=== PATIENT | female | born 1935 | race Caucasian/White ===

== ENCOUNTER 2017-12-25 13:10 | Inpatient (IN) | payer MEDICARE, OTHER ==
[2017-12-25] MEDS ORDERED: Lorazepam 2 MG/ML VIAL ONE (14:35)
[2017-12-25] MEDS ORDERED: Acetaminophen 325 MG TAB PO PRN ×2 (20:57→21:27)
[2017-12-25] MEDS ORDERED: Ondansetron ODT 4 MG TAB SL PRN (20:57)
[2017-12-25] MEDS ORDERED: Ondansetron HCl/PF 4 MG/2 ML Vial IVP PRN (20:57)
[2017-12-25] MEDS ORDERED: Famotidine 20 MG TAB PO SCH (21:00)
[2017-12-25] MEDS ORDERED: hydrALAZINE 20 MG/ML VIAL SLOW IVP PRN (21:27)
[2017-12-25] MEDS ORDERED: Milk Of Magnesia 30 ML UDCUP PO PRN (21:27)
[2017-12-25] MEDS ORDERED: Ondansetron ODT 4 MG TAB PO PRN (21:27)
[2017-12-25] MEDS: Atorvastatin Calcium 20 MG TAB PO SCH (22:53)
[2017-12-25] MEDS: Sodium Chloride 0.9% 1,000 ML IV SCH (22:54)
[2017-12-25] MEDS: Docusate 100 MG CAP PO SCH (22:54)
--- NOTE | 2017-12-26 00:18 | HP ---
PRIMARY CARE PHYSICIAN: The patient currently does not have a primary care physician. CHIEF COMPLAINT: Left-sided weakness. HISTORY OF PRESENT ILLNESS: Ms. Decker is a pleasant 82-year-old female that has a history of prev ious cerebrovascular accident x2 as well as hypertension. She is currently not on any medications; h owever. She lives independently and her daughter lives nearby. She says that on Monday afternoon, s he had a very painful shock like sensation to both of her legs. She said it was similar to when she had a previous stroke, but it was less than before. She says she was not very worried about it becau se in the times that she had had a stroke in the past, it got better and left her without any residua l deficits. She says this time though she started noticing some weakness in her left hand and her le ft leg. However, it started to get progressively weaker. She was able to manage getting around with a walker, but it got progressively worse and then on this morning, she was unable to even get up and unable to ambulate and she has fallen 3 times, 2 times over the weekend and one earlier and this pablo son she came to the emergency room for evaluation. The patient denies any other symptoms such as yovany st pain or difficulty breathing. No fevers or chills, etc. REVIEW OF SYSTEMS: Constitutional: Again, no fevers, chills, no night sweats, no weight loss. HEEN T: She denies any headaches, no dizziness, no visual changes, no sore throat, rhinorrhea, neck pain, no adenopathy. Pulmonary: No hemoptysis, no cough, no wheezing. Cardiovascular: She denies any c hest pain, no shortness of breath, no PND, no orthopnea. Gastrointestinal: No abdominal pain, no na usea, no vomiting, no change in bowels. Genitourinary: No urinary frequency, hematuria, no hesitanc y. Neurologic: As in the history of present illness. Skin/integument: No skin changes. No rash. PAST MEDICAL HISTORY: She has had a cerebrovascular accident x2, hypertension. She said she was haile d years ago, she had atrial fibrillation, but she is not on any medications and also told she had con gestive heart failure. No medications. PAST SURGICAL HISTORY: She has had an appendectomy. ALLERGIES: No known drug allergies. SOCIAL HISTORY: She is . She is a nonsmoker, nondrinker. She has 1 child and her daughter, Mi Nguyen is at the bedside. She is also her medical power of employment attorney. Her code status is DNR. FAMILY HISTORY: No history of any inheritable diseases. CURRENT MEDICATIONS: None. PHYSICAL EXAMINATION: GENERAL: She is alert and oriented. She appears to be in no acute distress. VITAL SIGNS: Blood pressure is ranging from about 197/100 to even 200 systolic. Her heart rate is i n the 70s, respiratory rate of 18 and she is afebrile. HEENT: Pupils are equal, round, and reactive. Extraocular muscles are intact. Her sclerae are anic teric. Throat, no erythema, no exudates. NECK: There is no adenopathy or bruits. LUNGS: Clear to auscultation. There was no wheezing or rales. CARDIOVASCULAR: She had a normal S1, S2. I did not appreciate an S3 or S4. She did have a grade 2/ 6 systolic murmur. ABDOMEN: Obese, it is soft, it is nontender, nondistended. Positive for bowel sounds. There is no rebound or guarding. EXTREMITIES: No clubbing, cyanosis, no edema. NEUROLOGIC: She has a left facial droop and she has weakness in the left upper and lower extremity. Her reflexes were slightly hyperreflexive with them being approximately 3+ in the brachioradialis an d patellar on the left side. EXTREMITIES: There was no Babinski on her extremities, there is no skin lesions and her pulses are p alpable the dorsalis pedis and posterior tibial. LABORATORY DATA: Lab results are taken from the [facility] and her sodium was 142, potassi um 3.3, chloride was 104, CO2 is 26, BUN of 16, creatinine 0.6, glucose is 116. White blood cell cou nt is 8.2, hemoglobin 14.2, hematocrit is 39.6, platelet count was 265. UA was essentially negative. Liver tests were negative. Troponin was less than 0.040, and a CT scan showed a right pontine infa rct. EKG was sinus rhythm. The rate was 72. She had some voltage criteria for LVH. ASSESSMENT AND PLAN: This is a pleasant 82-year-old female that presents with an acute right pontine infarct, which has left her with left-sided weakness and she has been unable to manage herself at [facility]. She has a history of atrial fibrillation in the past, where she is currently not on any medicati ons. It is unclear whether or not this may have precipitated the stroke. Her EKG in the ER was sinu s rhythm. She will be admitted to the stroke unit. Since the stroke is already documented, we will not obtain an MRI on this occasion; however, we will get an echocardiogram given the heart murmur and bilateral carotid Dopplers. Monitor her for atrial fibrillation while she is here. If none is seen , then she may need to see a resource room teacher with regards to possibly placing an event monitor. Hypertension. Her blood pressure is very poorly controlled. This may be as a result of the acute in [facility]; however, she does give a history of hypertension and she is currently not on medications. We will allow permissive hypertension at this point. However, in the next few days, we will monitor and determine whether or not she needs some long-term antihypertensive medication. She will need aggres sive PT and OT and suspect she will likely need a stay in inpatient rehabilitation.
[2017-12-26 00:20] VITALS: BMI 17.7
[2017-12-26 05:51] LABS: #Basophils 0.1 thou/uL (0.0-0.2); #Eosinphils 0.3 thou/uL (0.0-0.7); #Lymphocytes 1.5 thou/uL (1.20-3.40); #Monocytes 0.9 thou/uL (0.11-0.59); #Neutrophils 5.9 thou/uL (1.40-6.50); %Basophils 0.7 % (0.0-1.0); %Lymphocytes 17.8 % (21.0-51.0); %Monocytes 10.1 % (0.0-10.0); %Neutrophils 68.4 % (42.0-75.0); Hemoglobin 14.4 g/dL (12.0-16.0); Mean Corpuscular HGB CONC 34.3 g/dL (32.0-36.0); Mean Corpuscular Hemoglobin 32.6 pg (27.0-31.0); Mean Corpuscular Volume 94.9 fl (81.0-99.0); Mean Platelet Volume 7.6 fL (7.4-10.4); Platelet Count 244 thou/uL (130-400); RBC Distribution Width 11.9 % (11.5-14.5); Red Blood Cell (RBC) Count 4.42 mill/uL (4.20-5.40); White Blood Cell (WBC) Count 8.7 thou/uL (4.8-10.8)
[2017-12-26 06:00] LABS: Anion Gap 12 mmol/L (10-20); BUN (Urea Nitrogen) 15 mg/dL (9.8-20.1); Calc. Creatinine Clearance 48 mL/min (70-130); Calcium 8.7 mg/dL (7.8-10.44); Carbon Dioxide 23 mmol/L (23-31); Chloride 104 mmol/L (98-107); Cholesterol 158 mg/dl (< 200 Desired); Estimated GFR-MDRD Greater than 90; Glucose 95 mg/dL (83-110); HDL Cholesterol 52 mg/dL (>60 Neg Risk); LDL Cholesterol, Calculated 92 mg/dL; Potassium 3.3 mmol/L (3.5-5.1); Sodium 136 mmol/L (136-145); Triglycerides 71 mg/dL (Less than 150)
--- NOTE | 2017-12-26 09:21 | ULT ---
ULTRASOUND CAROTID DOPPLER STANDARD: HISTORY: Acute CVA. COMPARISON: None. TECHNIQUE: Real-time, burr scale, color Doppler, and spectral analysis of the extracranial carotid and vertebral arteries was performed. FINDINGS: There is normal antegrade flow within both vertebral arteries. No elevated peak systolic velocities within the internal carotid arteries. Mild intimal wall thickening. Right ICA/CCA ratio is 0.82 and left ICA/CCA ratio is 0.86. IMPRESSION: No evidence of hemodynamically significant stenosis. POS: TPC
[2017-12-26] MEDS: Docusate 100 MG CAP PO SCH ×2 (10:38→20:35)
[2017-12-26] MEDS: Aspirin 325 mg Enteric Coated Tablet PO SCH (10:38)
[2017-12-26] MEDS: Enoxaparin Sodium 40 MG/0.4 ML SYRINGE SC SCH (10:38)
--- NOTE | 2017-12-26 14:13 | PQF ---
Date: 12-26-17 ATTN: DR. RICHI MARTINEZ Please exercise your independent, professional judgment in responding to the clarification form. Clinical indicators are provided on the bottom of this form for your review Please check appropriate box(s): [X ] Protein Calorie Malnutrition: [ X ] Mild [ ] Moderate [ ] Severe [ ] Cachexia [ ] Other diagnosis [ ] Unable to determine In addition, please specify: Present on Admission (POA): [X ] Yes [ ] No [ ] Unable to determine CLINICAL INDICATORS - SIGNS / SYMPTOMS / LABS BMI of 17.7 OT ASSESSMENT 12-26-17: MUSCLE WEAKNESS, NEUROLOGICAL DEFICITS, DECLINED IN ADLS AND FX MOBILITY NURSE NOTE 12-25-17: PT ARRIVED VIA STRETCHER, MOVED TO ROOM BED WITH 3 NURSE ASSIST RISK FACTORS: H&P: CVA X2, HTN, AFIB, CHF TREATMENT: DIETARY CONSULT: 12-26-17: 1. Continue heart healthy diet type, textures per MARINE SERVICE MANAGER. 2. Recommend Ensure Enlive once daily. Moderate Malnutrition (in acute illness) Energy Intake: <75% of estimated energy requirement for > 7 days Weight Loss: 1-2%/1 week; 5%/ 1 month; 7.5%/3 months Other: mild body fat loss; mild muscle mass loss; mild fluid accumulation; Severe Malnutrition (in acute illness) Energy Intake: < 50% of estimated energy requirement for > 5 days Weight Loss: >1-2%/1 week; >5%/1 month; >7.5%/3 months Other: moderate body fat loss; moderate muscle mass loss; moderate- severe fluid accumulation; measurably reduced loan associate strength Moderate Malnutrition (in chronic illness) Energy Intake: <75% of estimated energy requirement for >1 month Weight Loss: 5%/1 month; 7.5%/3 months; 10%/6 months; 20%/1 year Other: mild body fat loss; mild muscle mass loss; mild fluid accumulation Severe Malnutrition (in chronic illness) Energy Intake: <75% of estimated energy requirement for >1 month Weight Loss: >5%/1 month; >7.5%/3 months; >10%/6 months; >20%/1 year Other: severe body fat loss; severe muscle mass loss; severe fluid accumulation ; measurably reduced loan associate strength (This form is maintained as a part of the permanent medical record) 2014 [employer] All Rights Reserved [email or web address] Office: [phone] [facility]
[2017-12-26] MEDS ORDERED: Potassium Chloride 20 MEQ TAB PO SCH (14:15)
--- NOTE | 2017-12-26 14:32 | PDOC.PN ---
- Subjective Encounter Start Date: 12/26/17 Encounter Start Time: 14:30 Ms. Decker was seen today in follow-up. She does not have any new complaints. She feels the weakness is about the same. - Objective Resuscitation Status: Resuscitation Status DNR:Do Not Resuscitate MAR Reviewed: Yes Vital Signs & Weight: Vital Signs (12 hours) Temp Pulse Pulse Pulse Resp BP BP 12/26/17 11:15 98 F 77 18 12/26/17 08:52 86 85 191/94 H 194/98 H 12/26/17 08:00 97.8 F 71 16 12/26/17 07:30 97.8 F 71 16 12/26/17 02:54 98.4 F 73 16 BP Pulse Ox 12/26/17 11:15 161/91 H 95 12/26/17 08:52 12/26/17 08:00 94 L 12/26/17 07:30 198/96 H 94 L 12/26/17 02:54 217/107 H 95 Weight Admit Weight 91 lb Weight 91 lb I&O: 12/25/17 12/26/17 12/27/17 06:59 06:59 06:59 Intake Total 720 Balance 720 Result Diagrams: 12/26/17 05:31 12/26/17 05:31 Phys Exam - Physical Examination HEENT: PERRLA, oral pharynx no lesions + left facial droop has improved Respiratory: no wheezing, no rales, no rhonchi, clear to auscultation bilateral Cardiovascular: RRR, no significant murmur, no rub Gastrointestinal: soft, non-tender, no distention Musculoskeletal: no edema, pulses present, edema present Neurological: non-focal Dx/Plan (1) Acute CVA (cerebrovascular accident) Code(s): I63.9 - CEREBRAL INFARCTION, UNSPECIFIED Status: Acute (2) Hypertension Code(s): I10 - ESSENTIAL (PRIMARY) HYPERTENSION Status: Acute (3) Dyslipidemia Code(s): E78.5 - HYPERLIPIDEMIA, UNSPECIFIED Status: Acute - Plan * Acute Right Pontine CVA -The left facial droop has improved. The strength in her left hand also seems slightly better than yesterday * HTN- will start a low dose of lisinopril tomorrow * Dyslipidemia- continue Lipitor * AFIB- she has not had evidence of this while she has been in the hospital- will consult Cardiology to see if she should be placed on an anticoagulant, or if she she have an event monitor placed at discharge * Continue PT/OT * Echo results pending * Carotid doppler was negative for flow limiting disease.
[2017-12-26] MEDS: Sodium Chloride 0.9% 1,000 ML IV SCH (15:04)
--- NOTE | 2017-12-26 20:02 | CON ---
DATE OF CONSULTATION: 12/26/2017 NEUROLOGY CONSULTATION CONSULTING PHYSICIAN: Hospitalist Service. IMPRESSION: Lacunar stroke resulting in a left hemiparesis. PLAN: 1. Aspirin 81 mg per day. 2. Low-dose statin. 3. Carotid ultrasound. 4. Echocardiogram. 5. PT and OT evaluations. 6. Probable rehabilitation transfer. HISTORY OF PRESENT ILLNESS: Ms. Decker is an 82-year-old woman who developed some left-sided weakn ess about a week ago. She did seek medical attention right away. The symptoms have been fairly stab le throughout the week by her assessment. She does not have any problems speaking or swallowing. Nadine villalpando has never had anything like this in the past and she denies any risk factors for stroke. Her initi al CT scan of the brain was unremarkable other than a questionable left pontine infarct. Lab work wa s all in normal range. PAST MEDICAL HISTORY: Negative. ALLERGIES: None reported. SOCIAL HISTORY: No tobacco or alcohol use. She lives alone in an independent manner. FAMILY HISTORY: Unremarkable. REVIEW OF SYSTEMS: No complaint of headache, nausea, vomiting, vertigo, double vision, alteration of consciousness, numbness of the extremities. PHYSICAL EXAMINATION: GENERAL: She is a thin elderly lady, lying in bed in no distress. VITAL SIGNS: Pulse 80, respirations 20. HEENT: Pupils are equal and reactive. Conjunctivae clear. Oropharynx clear. NECK: Supple. No lymphadenopathy noted. EXTREMITIES: No cyanosis. There is some orthopedic deformity secondary to arthritis. NEUROLOGIC: She is alert and appropriate. Her speech is fluent and clear. Cranial nerve exam shows a subtle left flattening of the nasolabial fold. She has antigravity strength on the left, but it i s in the range of 4-/5. Sensation is intact. Rapid alternating movements are decreased on the left. Gait was not tested. She reportedly is only able to walk 1 or 2 steps with a walker earlier today. No tremor or dysmetria was present. IMAGING: EKG shows normal sinus rhythm. SUMMARY: This is an elderly lady with a small vessel stroke resulting in left-sided weakness. Agree with your medical management and workup plan.
[2017-12-26] MEDS: Amlodipine 5 MG TAB PO SCH (20:35)
[2017-12-26] MEDS: Famotidine 20 MG TAB PO SCH (20:35)
[2017-12-26] MEDS: Atorvastatin Calcium 20 MG TAB PO SCH (20:35)
[2017-12-26] MEDS ORDERED: NIFEdipine XL 30 MG TAB PO SCH (21:00)
--- NOTE | 2017-12-26 23:58 | CON ---
DATE OF CONSULT: The patient is an 82-year-old woman who presents with left-sided weakness. The patient states she pr eviously has a history of atrial fibrillation and congestive heart failure. She presented to the [facility] with acute onset of left-sided weakness. She states she previously had suffered either a TIA o r cerebrovascular accident. The patient denies any history of chest discomfort or palpitations. PAST MEDICAL HISTORY: Significant for 1. Congestive heart failure. 2. Hypertension. 3. Cerebrovascular accident. 4. Possible atrial fibrillation. PAST SURGICAL HISTORY: Appendectomy. SOCIAL HISTORY: Nonsmoker. FAMILY HISTORY: No strong family history of coronary artery disease. ALLERGIES: None. MEDICATIONS: None. REVIEW OF SYSTEMS: Ten-point system otherwise unremarkable. No history of easy bruising, bleeding, bright red blood per rectum. PHYSICAL EXAMINATION: GENERAL: This is a thin, underweight woman in no acute distress. VITAL SIGNS: Blood pressure 205/107. NECK: Showed no jugular venous distention. LUNGS: Clear to auscultation. HEART: Regular rate and rhythm with a normal S1, S2, no murmurs. ABDOMEN: Nondistended. EXTREMITIES: Showed no edema. SKIN: Warm and dry. NEUROLOGIC: She has left-sided weakness, left arm and left leg have diminished air have diminished s trength. LABORATORY: Sodium 136, creatinine 3.3, chloride 104, Bicarb 23, BUN 15, creatinine 0.59, glucose 95 . White blood count 8.7, hemoglobin 14.4, hematocrit 42.0, platelets are 244. EKG I revealed normal sinus rhythm with left ventricular hypertrophy. IMPRESSION: 1. Cerebrovascular accident. 2. History of congestive heart failure. 3. Poorly controlled hypertension. 4. Possible atrial fibrillation. This patient presents with a cerebrovascular accident. This is apparently pontine infarct. From a c ardiac standpoint, we will proceed with a ELIEZER to make sure there is no evidence of thrombus or shunts . We will add Norvasc to her medical regimen to lower her blood pressure. We will await Neurology e valuation. She may benefit from placement of a Reveal monitor to determine whether she has atrial fi brillation if placed on chronic anticoagulation. We will follow this patient with you through her ho spitalization.
--- NOTE | 2017-12-27 08:29 | PDOC.PN ---
- Subjective Encounter Start Date: 12/27/17 Encounter Start Time: 08:28 Subjective: still very weak on left side - Objective Resuscitation Status: Resuscitation Status DNR:Do Not Resuscitate MAR Reviewed: Yes Vital Signs & Weight: Vital Signs (12 hours) Temp Pulse Resp BP BP BP Pulse Ox 12/27/17 07:32 97.9 F 76 16 192/95 H 93 L 12/27/17 04:35 98.9 F 95 16 174/92 H 12/26/17 23:49 97.9 F 81 16 200/95 H 97 12/26/17 20:35 60 196/99 H 12/26/17 20:30 98.3 F 60 22 H 95 Weight Admit Weight 91 lb Weight 91 lb I&O: 12/26/17 12/27/17 12/28/17 06:59 06:59 06:59 Intake Total 720 1940 Balance 720 1940 Result Diagrams: 12/26/17 05:31 12/26/17 05:31 Phys Exam - Physical Examination Neck: no JVD Respiratory: clear to auscultation bilateral Cardiovascular: RRR, no significant murmur Gastrointestinal: soft, non-tender Musculoskeletal: no edema dense left spastic hemiplegia Dx/Plan (1) Hemiplegia affecting left nondominant side Code(s): G81.94 - HEMIPLEGIA, UNSPECIFIED AFFECTING LEFT NONDOMINANT SIDE Status: Acute Qualifiers: Hemiplegia type: spastic Hemiplegia etiology: late effect of cerebrovascular disease (2) Atrial fibrillation, currently in sinus rhythm Code(s): Z86.79 - PERSONAL HISTORY OF OTHER DISEASES OF THE CIRCULATORY SYSTEM Status: Chronic (3) Acute CVA (cerebrovascular accident) Code(s): I63.9 - CEREBRAL INFARCTION, UNSPECIFIED Status: Acute (4) Dyslipidemia Code(s): E78.5 - HYPERLIPIDEMIA, UNSPECIFIED Status: Chronic (5) Hypertension Code(s): I10 - ESSENTIAL (PRIMARY) HYPERTENSION Status: Chronic Qualifiers: Hypertension type: essential hypertension Qualified Code(s): I10 - Essential (primary) hypertension - Plan cont PT/OT- rehab screen -: cont norvasc, add b-maricarmen if needed -: cont asa, statin * .
[2017-12-27] MEDS: Enoxaparin Sodium 40 MG/0.4 ML SYRINGE SC SCH (08:33)
[2017-12-27] MEDS: Amlodipine 5 MG TAB PO SCH (08:34)
[2017-12-27] MEDS: Aspirin 325 mg Enteric Coated Tablet PO SCH (08:34)
[2017-12-27] MEDS: Docusate 100 MG CAP PO SCH ×2 (08:35→20:47)
[2017-12-27] MEDS ORDERED: Prevnar 13-Val Conj/PF 0.5 ML SYRINGE IM ONE (09:00)
[2017-12-27] MEDS ORDERED: Lisinopril 5 MG TAB PO SCH (09:00)
[2017-12-27] MEDS: NIFEdipine XL 30 MG TAB PO SCH ×2 (09:58→20:48)
[2017-12-27] MEDS: Sodium Chloride 0.9% 1,000 ML IV SCH (14:09)
--- NOTE | 2017-12-27 18:52 | DIS ---
DATE OF ADMISSION: 12/25/2017 DATE OF DISCHARGE: 12/27/2017 DISCHARGE DISPOSITION: Discharged to inpatient rehabilitation. FINAL DIAGNOSES: Pontine infarct, left spastic hemiplegia, hypertension, history of atrial fibrillat ion in regular sinus rhythm. DISCHARGE MEDICATIONS: Zofran oral dissolving tablet 4 mg q.6 hours p.r.n., nifedipine 30 mg p.o. b. i.d., Pepcid 20 mg p.o. daily, Colace 100 mg p.o. b.i.d., Lipitor 20 mg at bedtime, aspirin 325 mg a day. ALLERGIES: PENICILLINS. CODE STATUS: DNR. PENDING AT TIME OF DISCHARGE: Nothing. HOSPITAL COURSE: Patient was admitted with the acute onset of left-sided hemiplegia with spasticity. She was started on PT, OT, aspirin. Her carotid Doppler was unrevealing. She was seen in consulta tion by Dr. Shan Reyes who agreed with the current plan aspirin, statins, PT, OT. Her swallowing w as good. She was seen by Dr. Valerio, Cardiology because of her history of atrial fibrillation. Sh e declined ELIEZER, etc. No MRI was done. Patient declined. Her CT done in [place] revealed a 1 x 2 cm right pontine infarct, no MRI was done at patient's request. Currently, her vital signs are stabl e. She is with normal cardiorespiratory exam, regular sinus rhythm. Her CBC was normal. Comp metab olic profile was unremarkable. She is being transferred to rehab for ongoing physical therapy. She will need a PCP post-discharge. No procedures were done.
[2017-12-27 19:20] VITALS: BP 134/63
[2017-12-27] MEDS: Famotidine 20 MG TAB PO SCH (20:48)
[2017-12-27] MEDS: Atorvastatin Calcium 20 MG TAB PO SCH (20:48)
[2017-12-27 23:08] VITALS: TEMP 98
== END 2017-12-27 21:22 | DRG 65 ==
LOC: ERS 13:10 → 2SE 15:48
PROVIDERS: ADMIT Internal Medicine; ATTEND Internal Medicine
DX: I63.9 Cerebral infarction, unspecified (principal); G81.94 Hemiplegia, unspecified affecting left nondominant side; E44.1 Mild protein-calorie malnutrition; Z68.1 Body mass index [BMI] 19.9 or less, adult; I10 Essential (primary) hypertension; I50.9 Heart failure, unspecified; Z66 Do not resuscitate; Z88.0 Allergy status to penicillin; E78.5 Hyperlipidemia, unspecified
CPT/HCPCS: 36415; 80048; 80061; 85025; 93880; 96374; A4216; G8987-GO-CL; G8988-GO-CJ; G8996-GN-CH; G8997-GN-CH; J1650; J2060

== ENCOUNTER 2020-08-04 10:58 | Inpatient (IN) | payer MEDICARE, OTHER ==
[2020-08-04 12:03] LABS: #Eosinphils 0.1 thou/uL (0.0-0.7); #Lymphocytes 1.3 thou/uL (1.20-3.40); #Monocytes 0.7 thou/uL (0.11-0.59); %Basophils 0.6 % (0.0-1.0); %Eosinophils 0.8 % (0.0-10.0); %Lymphocytes 16.3 % (21.0-51.0); %Monocytes 8.6 % (0.0-10.0); %Neutrophils 73.8 % (42.0-75.0); Hemoglobin 9.1 g/dL (12.0-16.0); Mean Corpuscular HGB CONC 32.4 g/dL (32.0-36.0); Mean Corpuscular Hemoglobin 30.8 pg (27.0-31.0); Mean Corpuscular Volume 94.9 fL (78.0-98.0); Mean Platelet Volume 7.7 fL (7.4-10.4); Platelet Count 263 thou/uL (130-400); RBC Distribution Width 14.2 % (11.5-14.5); Red Blood Cell (RBC) Count 2.97 mill/uL (4.20-5.40); White Blood Cell (WBC) Count 8.1 thou/uL (4.8-10.8)
[2020-08-04 12:34] LABS: ALT (SGPT) 10 U/L (8-55); AST (SGOT) 16 U/L (5-34); Albumin 3.6 g/dL (3.4-4.8); Alkaline Phosphatase 69 U/L (40-110); Anion Gap 15 mmol/L (10-20); BUN (Urea Nitrogen) 38 mg/dL (9.8-20.1); Bilirubin, Total 0.4 mg/dL (0.2-1.2); Calc. Creatinine Clearance 0 mL/min (70-130); Calcium 8.7 mg/dL (7.8-10.44); Carbon Dioxide 19 mmol/L (23-31); Chloride 109 mmol/L (98-107); Globulin 2.9 g/dL (2.4-3.5); Glucose 98 mg/dL (83-110); Potassium 4.8 mmol/L (3.5-5.1); Protein, Total 6.5 g/dL (6.0-8.3); Sodium 138 mmol/L (136-145)
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
[2020-08-04] MEDS ORDERED: Ondansetron ODT 4 MG TAB PO PRN (16:22)
[2020-08-04] MEDS ORDERED: Ondansetron PF 4 MG/2 ML Vial IVP PRN (16:22)
[2020-08-04 18:01] LABS: INR-International Normal Ratio 1.1; Prothrombin Time 14.1 sec (12.0-14.7)
[2020-08-04 18:02] LABS: PTT 29.2 sec (22.9-36.1)
[2020-08-04] MEDS: Famotidine/PF 20 mg/2ml Vial SLOW IVP SCH (20:06)
[2020-08-05 01:29] LABS: Hemoglobin 7.6 g/dL (12.0-16.0); Platelet Count 234 thou/uL (130-400)
[2020-08-05 05:33] LABS: Hemoglobin 8.3 g/dL (12.0-16.0)
--- NOTE | 2020-08-05 06:08 | PDOC.FM ---
- Subjective Subjective: Pt resting comfortably in bed this AM. No acute events overnight. States that she is feeling hungry and tired. Remained stable overnight. - Objective Vital Signs & Weight: Vital Signs (12 hours) Temp Pulse Resp BP Pulse Ox 08/05/20 03:11 98.4 F 66 15 110/64 98 08/04/20 23:54 98.2 F 66 15 106/59 L 96 08/04/20 19:20 98.2 F 66 15 104/65 96 08/04/20 18:20 98.6 F 66 18 142/65 H 99 Weight Weight 46.493 kg I&O: 08/03/20 08/04/20 08/05/20 06:59 06:59 06:59 Intake Total 350 Balance 350 Result Diagrams: 08/05/20 05:09 08/04/20 11:53 Phys Exam - Physical Examination Constitutional: NAD HEENT: moist MMs pale palpebra Neck: supple Respiratory: no wheezing, no rales, no rhonchi, clear to auscultation bilateral Cardiovascular: RRR, no significant murmur, no rub Gastrointestinal: soft, non-tender, no distention, positive bowel sounds Musculoskeletal: pulses present Neurological: moves all 4 limbs Psychiatric: normal affect, A&O x 3 Skin: normal turgor Dx/Plan - Plan Plan: ##Acute Blood Loss Anemia 2/2 to suspected UGB Pt has been having 3 months of black tarry stools. Pt had hx of use of daily use of aspirin with warfarin for 2.5 years after her stroke. She is not currently taking any NSAIDs at this time. She is hemodynamically stable at this time. -Pt's VSS currently, no current bleeding at this time -Pt's GI is Dr. Zaman, has been consulted at this time, suspect that pt will be taken to have EGD and Colonoscopy -PT/PTT ordered, if patient has bleeding and INR > 2.5 will consider FFP for patient -Type and Cross done -H/H stable at this time 8.3 Chronic Conditions: -Hx of CVA: aware -HTN: continue home meds -Afib: continue home meds -HLD: continue home meds DIET: Clears VTE: None CODE: DNRI MPOA: Daughter - María Elena Dispo as of 08/05: Admitted to medical service. GI consulted and will await recs and pending scopes. Will continue to monitor pt symptomatically and transfuse as necessary. H/H stable at this time.
[2020-08-05 06:39] LABS: Iron 24 ug/dL (50-170); Iron Binding Capacity, Total 324 mcg/dL (265-497)
[2020-08-05] MEDS: Famotidine/PF 20 mg/2ml Vial SLOW IVP SCH (08:05)
[2020-08-05] MEDS ORDERED: Lisinopril 10 MG TAB PO SCH (09:00)
[2020-08-05] MEDS: Ferrous Sulfate 325 MG TAB PO SCH (09:00)
[2020-08-05 10:03] LABS: SARS-CoV-2 MS2 Positive; SARS-CoV-2 N Gene Negative; SARS-CoV-2 S Gene Negative; SARS-CoV-2 by NAA Not Detected (NotDetected); SARS-CoV-2 orf1ab Negative
[2020-08-05] MEDS ORDERED: Pantoprazole 40 MG VIAL IVP SCH (10:15)
--- NOTE | 2020-08-05 13:32 | HP ---
HISTORY OF PRESENT ILLNESS: I have examined the patient, discussed the case with Dr. Lorene Parham. Ms. Decker is a very pleasant 84-year-old lady presents with a one month history of dark black stools interspersed at times of bright red blood. During this time, she has been seeing her physician and has required 6 units of packed red blood cells over the past month. She was becoming progressively weaker, continued to bleed, and was admitted for endoscopic studies to determine the source. PHYSICAL EXAMINATION: VITAL SIGNS: Her blood pressure is 137/80, her pulse rate is 65 and regular, respirations 17, O2 sats 99% on room air. GENERAL: She is a very pleasant, alert, elderly woman, in no acute distress. EAR, NOSE, AND THROAT: Appears slightly pale. Otherwise, no erythema or exudate of the throat. NECK: Supple. CARDIAC: Heart rhythm is regular. gallop. No murmurs or rubs noted. LUNGS: Clear without rales or wheezes. ABDOMEN: Slightly tender in the epigastric area, not marked. No guarding, rebound, or rigidity. No distention. EXTREMITIES: No edema. NEUROLOGIC: No focal deficits. LABORATORY DATA: CBC; white count was 8100, hemoglobin 9.1, hematocrit 28.2 with an MCV of 95. Coag studies were normal. Chemistries; sodium 138, potassium 4.8, chloride 109, bicarb 19, BUN 38, creatinine 0.85. Iron studies; serum iron low at 24, TIBC mid range high at 324, O2 saturation low at 7, and ferritin low at 27, all consistent with iron deficiency anemia. ASSESSMENT: 1. Evidence of upper and lower gastrointestinal bleeding. 2. Anemia secondary to evidence of upper and lower gastrointestinal bleeding. PLAN: Admit for endoscopic studies. We have already consulted GI. We will transfuse if her hemoglobin drops below 7. Her PT/INR is normal, though she needs no addition of FFP at this time. We also begin intravenous PPI and await the results of endoscopies. Now I would like to proceed with daily note on Ms. Decker. Ms. Decker this morning is awake, alert, in no distress. She is awaiting GI prep for her endoscopic studies to likely be done tomorrow. Her hemoglobin has remained basically stable, dropping to 7.6, but this morning was 8.3. We will continue to monitor closely, but no need for transfusion at this time. Job ID: [id number]
[2020-08-05] MEDS ORDERED: GoLYTELY 4,000 ml Bottle PO SCH ×2 (16:00→20:45)
[2020-08-05] MEDS: Pantoprazole 40 MG VIAL IVP SCH (19:28)
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
--- NOTE | 2020-08-06 05:31 | PDOC.FM ---
- Subjective Subjective: Pt resting comfortably in bed this AM. No acute events overnight. States that she is anxious about her scopes this morning but reports that she tolerated the prep yesterday. - Objective Vital Signs & Weight: Vital Signs (12 hours) Temp Pulse Resp BP Pulse Ox 08/05/20 20:00 98 08/05/20 19:34 97.6 F 71 18 132/61 98 Weight Admit Weight 46.493 kg Weight 46.493 kg I&O: 08/04/20 08/05/20 08/06/20 06:59 06:59 06:59 Intake Total 350 3170 Balance 350 3170 Result Diagrams: 08/06/20 07:28 08/04/20 11:53 Phys Exam - Physical Examination Constitutional: NAD HEENT: moist MMs pale palebra Neck: supple Respiratory: no wheezing, no rales, no rhonchi, clear to auscultation bilateral Cardiovascular: RRR, no rub 3/6 systolic murmur Gastrointestinal: soft, non-tender, no distention, positive bowel sounds Musculoskeletal: pulses present Neurological: normal sensation Psychiatric: A&O x 3 Skin: normal turgor Dx/Plan - Plan Plan: ##Acute Blood Loss Anemia 2/2 to suspected UGB Pt has been having 3 months of black tarry stools. Pt had hx of use of daily use of aspirin with warfarin for 2.5 years after her stroke. She is not currently taking any NSAIDs at this time. She is hemodynamically stable at this time. -Pt's VSS currently, no current bleeding at this time -Type and Cross done -H/H stable at this time -INR 1.1 -GI, Dr. Ernst will be taking pt today for EGD and Colonoscopy Chronic Conditions: -Hx of CVA: aware -HTN: continue home meds -Afib: continue home meds -HLD: continue home meds DIET: Clears VTE: None CODE: DNRI MPOA: Daughter - María Elena Dispo as of 08/06: Pending scopes today. If stable findings then imagine pt could be discharged later today or early tomorrow.
[2020-08-06 07:42] LABS: Hemoglobin 8.3 g/dL (12.0-16.0)
[2020-08-06] MEDS: Pantoprazole 40 MG VIAL IVP SCH (08:25)
[2020-08-06] MEDS: Ferrous Sulfate 325 MG TAB PO SCH (08:25)
[2020-08-06] MEDS ORDERED: Lidocaine 1% PF 5 ML VIAL ONE (10:41)
[2020-08-06] MEDS ORDERED: PROPOFOL 200 MG/20 ML VIAL ONE (10:41)
--- NOTE | 2020-08-06 12:41 | OP ---
DATE OF PROCEDURE: 08/06/2020 ROCKET ENGINE COMPONENT MECHANIC SURGEON: None. PROCEDURE PERFORMED: 1. Esophagogastroduodenoscopy, diagnostic. 2. Colonoscopy, diagnostic. INDICATION: 1. Melena. 2. Acute blood loss anemia. MEDICATIONS: See Anesthesia record. FINDINGS: After discussion of the risks, benefits, and alternatives of the procedure, informed consent was obtained and witnessed. Pre-endoscopic cardiopulmonary examination was satisfactory. Time-out was performed before sedation was achieved. Sedation was achieved with Anesthesia assistance in the endoscopy unit. A Pentax adult upper endoscope was placed into the oropharynx and passed through the cricopharyngeus under direct visualization. The esophageal mucosa appeared normal with a normal-appearing Z-line at 35 cm from the incisors. The endoscope was advanced into the stomach. Forward and retroflexed views of the entire gastric mucosa were obtained. The gastric mucosa appeared normal throughout. There was no evidence of any old blood or active bleeding or bleeding lesions in the stomach. The endoscope was advanced into the pylorus and beyond into the first and second portions of the duodenum. In the duodenal bulb and at the duodenal sweep, there was some mild to moderate erythema and friability, but no significant erosions or ulcerations. No bleeding noted. The second portion of the duodenum appears unremarkable. The upper endoscope was completely withdrawn and the patient was repositioned. Digital rectal exam was performed, which showed external hemorrhoidal skin tags. A Pentax adult colonoscope was inserted into the anus and passed forward in the usual fashion. Advancement beyond the sigmoid colon was difficult due to tortuosity and looping of the endoscope, but the scope was able to be advanced all the way to what appears to be an ileocolonic anastomosis at 60 cm from the anal verge. It appears the patient has undergone some degree of right colon resection with ileocolonic anastomosis. The anastomosis was widely patent and healthy appearing. The endoscope was passed up into the ileum for a distance of 15 cm and the ileal mucosa appeared normal. The colonoscope was slowly withdrawn in a gradual circumferential manner with careful examination of the entire colonic mucosa. The quality of the prep was good. There was no evidence of any old blood or active bleeding in the colon. There were no polyps or mass lesions visualized. There were no bleeding lesions visualized. There was diverticulosis throughout the left side of the colon. Retroflexion of the rectum demonstrates large internal hemorrhoids. The colonoscope was completely withdrawn and the patient allowed to recover. The patient tolerated the procedure well. There were no immediate postprocedure complications. IMPRESSION: 1. Duodenitis, mild to moderate, nonerosive, with no bleeding. 2. Otherwise normal EGD. 3. Left-sided colonic diverticulosis. 4. Healthy appearing and widely patent ileocolonic anastomosis at 60 cm from the anal verge. 5. Normal ileum. 6. Internal hemorrhoids. 7. Otherwise normal colonoscopy, with no evidence of any old blood or active bleeding. RECOMMENDATION: 1. Advance diet. 2. I would continue to hold Coumadin. 3. Daily PPI on discharge. 4. The patient does not appear to be having any active bleeding at this time, with no residual blood demonstrated on endoscopy, but no bleeding lesion found. Consider the possibility of obscure small bowel bleeding source, perhaps intermittently bleeding. I would recommend arranging for outpatient capsule endoscopy through our office with Dr. Ernst in the next week or two. I do not think a tagged RBC scan is going to be of any value at this time unless the patient were to show signs of overt bleeding here. If the patient's blood count is stable tomorrow, I think she could potentially be discharged from the hospital with close followup with Dr. Ernst for capsule endoscopy. Please call anytime with questions or concerns. Job ID: [id number]
--- NOTE | 2020-08-06 16:18 | PRG ---
DATE OF SERVICE: 08/06/2020 Ms. Decker underwent EGD and colonoscopy today per the GI Service with findings as follows; she had duodenitis, described as mild to moderate, but no active bleeding currently, otherwise the EGD was normal. She was also noted on colonoscopy to have a colonic diverticulosis on the left side, had some internal hemorrhoids, otherwise normal again with no evidence of active bleeding. Recommendations of GI were could advance her diet. Continue to hold her Coumadin. Continue her on a daily PPI upon discharge. We appreciate the input from the GI Service. Job ID: [id number]
[2020-08-06] MEDS ORDERED: Acetaminophen 325 MG TAB PO PRN (16:28)
[2020-08-06] MEDS ORDERED: Ferrous Sulfate 325 MG TAB PO SCH (18:00)
[2020-08-06] MEDS ORDERED: Atorvastatin Calcium 20 MG TAB PO SCH (21:00)
[2020-08-06] MEDS ORDERED: NIFEdipine XL 30 MG TAB PO SCH (21:00)
--- NOTE | 2020-08-07 06:15 | PDOC.FM ---
- Subjective Subjective: Pt resting in bed this AM. No acute events overnight. - Objective Vital Signs & Weight: Vital Signs (12 hours) Temp Pulse Resp BP Pulse Ox 08/06/20 21:11 94 L 08/06/20 21:00 98.3 F 75 18 104/67 94 L Weight Admit Weight 46.493 kg Weight 46.493 kg I&O: 08/05/20 08/06/20 08/07/20 06:59 06:59 06:59 Intake Total 350 5520 510 Balance 350 5520 510 Result Diagrams: 08/07/20 06:21 08/04/20 11:53 Phys Exam - Physical Examination Constitutional: NAD HEENT: moist MMs Neck: supple Respiratory: no wheezing, no rales, no rhonchi, clear to auscultation bilateral Cardiovascular: RRR, no rub 3/6 systolic murmur Gastrointestinal: soft, non-tender, no distention, positive bowel sounds Musculoskeletal: pulses present Neurological: normal sensation Psychiatric: normal affect, A&O x 3 Skin: normal turgor Dx/Plan - Plan Plan: ##Acute Blood Loss Anemia 2/2 to suspected UGB Pt has been having 3 months of black tarry stools. Pt had hx of use of daily use of aspirin with warfarin for 2.5 years after her stroke. She is not currently taking any NSAIDs at this time. She is hemodynamically stable at this time. -Pt's VSS currently, no current bleeding at this time -H/H stable at this time -s/p EGD and Colonoscopy yesterday showed duodenitis, non-erosive with no bleeding. Left sided colonic diverticulosis. Internal hemorrhoids. Healthy appearing and widely patent ileocolonic anastomosis at 60cm from the anal verge. Suggestion of outpatient capsule endoscopy in 1-2 weeks. Chronic Conditions: -Hx of CVA: aware -HTN: continue home meds -Afib: continue home meds -HLD: continue home meds DIET: Advancing as tolerated. VTE: None CODE: DNRI MPOA: Daughter Emery Mcghee as of 08/07: Scopes showed stable findings. No source of active or old bleeding. H/H this AM. Will discharge today with close outpatient follow up. Will need PPI and Iron meds added to her daily regimen.
[2020-08-07 06:56] LABS: Hemoglobin 8.6 g/dL (12.0-16.0)
[2020-08-07 08:18] VITALS: BP 146/63; TEMP 97.7
[2020-08-07] MEDS ORDERED: Amlodipine 10 MG TAB PO SCH (09:00)
--- NOTE | 2020-08-07 11:50 | PQF ---
CLINICAL DOCUMENTATION CLARIFICATION FORM: Dear Dr.S. Parham, DO Date: 08/07/2020 [id number] Please exercise your independent, professional judgment in responding to the clarification form. Clinical indicators are provided on the bottom of this form for your review. Please check appropriate box(es): [ ] Protein Calorie Malnutrition: [ X ] Mild [ ] Moderate [ ] Severe [ ] Other Malnutrition (please specify) [ X ] Underweight without malnutrition [ ] Cachexia [ ] Other diagnosis [ ] Unable to determine In addition, please specify: Present on Admission (POA): [ X ] Yes [ ] No [ ] Unable to determine For continuity of documentation, please document condition throughout progress notes and discharge summary. Thank You. To be completed by CDI/Coding staff for physician review: CLINICAL INDICATORS - SIGNS / SYMPTOMS / LABS / RESULTS AND LOCATION IN MR Nutrition diagnosis Malnutrition Related to GI bleed and aging process as evidenced by Moderate globalized muscle and fat wasting suggestive of moderate malnutrition in the context of chronic illness RISK FACTORS / RESULTS AND LOCATION IN MR Advanced age ( 84) , GI bleed, ( PN/ Selli) 08/05 TREATMENT / RESULTS AND LOCATION IN MR Dietary consult ( 08/05) Recommend Ensure Enlive QD ( RD assessment) 08/05 Moderate Malnutrition (in acute illness) Energy Intake: <75% of estimated energy requirement for > 7 days Weight Loss: 1-2%/1 week; 5%/ 1 month; 7.5%/3 months Other: mild body fat loss; mild muscle mass loss; mild fluid accumulation; Severe Malnutrition (in acute illness) Energy Intake: = 50% of estimated energy requirement for = 5 days Weight Loss: >2%/1 week; >5%/1 month; >7.5%/3 months Other: moderate body fat loss; moderate muscle mass loss; moderate- severe fluid accumulation; measurably reduced brain picker strength Moderate Malnutrition (in chronic illness) Energy Intake: <75% of estimated energy requirement for =1 month Weight Loss: 5%/1 month; 7.5%/3 months; 10%/6 months; 20%/1 year Other: mild body fat loss; mild muscle mass loss; mild fluid accumulation Severe Malnutrition (in chronic illness) Energy Intake: =75% of estimated energy requirement for =1 month Weight Loss: >5%/1 month; >7.5%/3 months; >10%/6 months; >20%/1 year Other: severe body fat loss; severe muscle mass loss; severe fluid accumulation; measurably reduced brain picker strength Thank you! CDS Signature: Anayeli Mercedes RN Phone #: [phone] Date:08/07/2020 This is a permanent part of the Medical Record [facility]
--- NOTE | 2020-08-08 07:37 | PRG ---
DATE OF SERVICE: 08/07/2020 ADDENDUM: I have read the note of Dr. Lorene Parham and agree with her assessment and plan, and I have discussed the case with her. Job ID: [id number]
--- NOTE | 2020-08-10 08:14 | PQF ---
CLINICAL DOCUMENTATION CLARIFICATION FORM: Dear : Ernesto Chandler Date / Time: 08/10/2020 08:13 Please exercise your independent, professional judgment in responding to the clarification form. Clinical indicators are provided on the bottom of this form for your review Can you please specify the etiology of patients GI bleed? Please check appropriate box(es): [ ] Duodenitis [ ] Colon Diverticulosis [ ] Internal hemorrhoids [ ] Adverse effect of Aspirin [ ] Other diagnosis, please specify: [ ] Unable to determine Physician Signature: Date/Time: For continuity of documentation, please document condition throughout progress notes and discharge summary. Thank You. To be completed by CDI/Coding staff for physician review: Present Clinical Indicators - Signs / Symptoms / Labs Results and Location in Medical Record [x] Acute blood loss anemia 2/2 suspected UGIB HP 08/04 [x] CC: Dark stools HP 08/04 [x] Patient suffering from presumed acute blood loss anemia secondary to likely upper GI bleed. Etiology of bleed could be potentially be due to aspirin use current with warfarin therapy HP 08/04 [x] Impression: Duodenitis, Colon diverticulosis and internal hemorrhoids OP Note 08/06 Present Risk Factors Results and Location in Medical Record [x] Use of aspirin HP 08/04 [x] Duodenitis OP Note 08/06 [x] Colon Diverticulosis OP Note 08/06 [x] Internal hemorrhoids OP Note 08/06 Present Treatments Results and Location in Medical Record [x] EGD with colonoscopy OP Note 08/06 [x] Gastroenterology Consult Consult 08/04 [x] Pantoprazole 40mg IV OCT 30 [x] IVF OCT 30 CDS/Matrix Bath Attendant Signature: Mary Zhou Phone #: [phone] Date/Time: 08/10/2020 This is a permanent part of the Medical Record MTDD
--- NOTE | 2020-08-10 13:23 | DIS ---
DATE OF ADMISSION: 08/05/2020 DATE OF DISCHARGE: 08/07/2020 RESIDENT: Lorene Parham DO. ADMITTING ATTENDING: Ernesto Chandler MD. DISCHARGE ATTENDING: Ernesto Chandler MD. CONSULTS: Dr. Ernst and Dr. Linares of GI. PROCEDURES: Esophagogastroduodenoscopy and colonoscopy were performed on 08/06/2020, which showed duodenitis, mild to moderate nonerosive with no bleeding, otherwise normal esophagogastroduodenoscopy, left-sided colonic diverticulosis, healthy-appearing and widely patent ileocolonic anastomosis at 60 cm from the anal verge, normal ileum, internal hemorrhoids, otherwise normal colonoscopy with no evidence of any old blood or active bleeding. PRIMARY DIAGNOSIS: Acute blood loss anemia secondary to suspected upper gastrointestinal bleed. SECONDARY DIAGNOSES: 1. History of cerebrovascular accident. 2. Hypertension. 3. Atrial fibrillation. 4. Hyperlipidemia. DISCHARGE MEDICATIONS: 1. Atorvastatin 20 mg p.o. h.s. 2. Metoprolol 25 mg p.o. daily. 3. Lisinopril 10 mg p.o. daily. 4. Amlodipine 10 mg p.o. daily. 5. Procardia 30 mg p.o. h.s. 6. Ferrous sulfate 325 mg p.o. q.2 days. 7. Protonix 40 mg p.o. daily. DISCONTINUED MEDICATIONS: None. HISTORY OF PRESENT ILLNESS/HOSPITAL COURSE: This is an 84-year-old female who presented from Dr. Zaman's office complaining of dark tarry stools and anemia. Apparently, this had been going on for the past few months per the patient. She reported that she had received about 6 blood transfusions over the past month. She had one colonoscopy in the past when she was 40, she believes. She expressed generalized fatigue and weakness and this has been ongoing with some intermittent dizziness. The patient was previously on warfarin for Afib due to her history of a CVA; however, this was stopped about 3 weeks prior to her admission since she was having dark tarry stools. The patient was otherwise hemodynamically stable and had no active bleeding. Upon presentation, the patient's GI Dr. Zaman was consulted from the ED and the patient was already scheduled to have an EGD and colonoscopy on the of this month; however, the patient was admitted to have expedition of these scopes. During her hospitalization, her H/H were trended. The patient was started on iron supplementation as her iron was found to be low. She did not require any transfusions during her stay. Her EGD and colonoscopy have the findings as above. It was suggested that patient to follow up outpatient with Dr. Linares as he did the EGD and colonoscopy for a possible capsule endoscopy. The patient was advised to continue to NOT take her home blood thinners. The patient did not have any other bleeding during her hospitalization. DISPOSITION: Stable. DISCHARGE INSTRUCTIONS: 1. Location: Home. 2. Diet: Regular. 3. Activity: As tolerated. 4. Follow up within 7 to 10 days with GI and her PCP. [facility] ID: [id number] [facility]
== END 2020-08-07 12:09 | disposition home or self-care (01) | DRG 378 ==
LOC: ERS 10:58 → T4-B 16:04 → OBSVTOIN 08-05 15:47
PROVIDERS: ADMIT Family Medicine; ATTEND Family Medicine
PROC: 0DJ08ZZ Inspection of Upper Intestinal Tract, Via Natural or Artificial Opening Endoscopic (ICD-10-PCS; principal; 2020-08-06)
PROC: 0DJD8ZZ Inspection of Lower Intestinal Tract, Via Natural or Artificial Opening Endoscopic (ICD-10-PCS; 2020-08-06)
DX: K92.2 Gastrointestinal hemorrhage, unspecified (principal); D62 Acute posthemorrhagic anemia; Z20.828 Contact with and (suspected) exposure to other viral communicable diseases; I10 Essential (primary) hypertension; I48.91 Unspecified atrial fibrillation; E78.5 Hyperlipidemia, unspecified; Z66 Do not resuscitate; K29.80 Duodenitis without bleeding; K57.30 Diverticulosis of large intestine without perforation or abscess without bleeding; K64.8 Other hemorrhoids; Z86.73 Personal history of transient ischemic attack (TIA), and cerebral infarction without residual deficits; Z88.0 Allergy status to penicillin; Z88.8 Allergy status to other drugs, medicaments and biological substances; Z79.82 Long term (current) use of aspirin; Z79.899 Other long term (current) drug therapy; Z90.49 Acquired absence of other specified parts of digestive tract; R63.6 Underweight; Z68.20 Body mass index [BMI] 20.0-20.9, adult
CPT/HCPCS: 36415; 80053; 82728; 83540; 83550; 85014; 85018; 85025; 85049; 85610; 85730; 86850; 86900; 86901; 87635; 96374; 96375; 96376; 99285; C9113; G0378; J2704; Q0162; S0028; U0003